=== PATIENT | male | born 1950 | race Caucasian/White ===

== ENCOUNTER 2018-09-29 10:24 | Day surgery (SDC) | payer OTHER ==
--- NOTE | 2018-09-29 08:03 | HP ---
DATE OF SURGERY: 09/29/2018 ADMISSION DIAGNOSIS: Gallbladder dyskinesia 70%. ANTICIPATED PROCEDURE: Cholecystectomy. HISTORY OF PRESENT ILLNESS: A patient with upper abdominal pain nearly killing him. He had been severely bad here for about a week. Presents with HIDA scan. Seen and examined in the office. Desires to have immediate surgical intervention. He is being scheduled urgently. PAST MEDICAL HISTORY: ALLERGIES: PENICILLIN. MEDICATIONS: Nexium. PAST SURGICAL HISTORY: Knee replacement. Partial knee. Shoulder. Rotator cuff. Appendix. SOCIAL HISTORY: Negative. FAMILY HISTORY: Negative. PHYSICAL EXAMINATION: VITAL SIGNS: Normal. CHEST: Clear. COR: Regular. ABDOMEN: No palpable organomegaly or mass. IMPRESSION: Gallbladder dyskinesia. PLAN: Laparoscopic cholecystectomy.
[~2018-09-29 10:24] MED LIST: Lactated Ringers 1,000 ML IV ONE; Sensorcaine 0.25% 10 ML ONE
[2018-09-29] MEDS ORDERED: Ephedrine Sulfate 50 MG/ML IJ ONE (10:25)
[2018-09-29] MEDS ORDERED: SUBLIMAZE 250 MCG/5 ML IJ ONE (10:25)
[2018-09-29] MEDS ORDERED: Zemuron 100 MG/10 ML IJ ONE (10:25)
[2018-09-29] MEDS ORDERED: PHENYLEPHRINE HCL IJ ONE (10:25)
[2018-09-29] MEDS ORDERED: Decadron 4 MG INJ IV ONE (10:25)
[2018-09-29] MEDS ORDERED: BRIDION 200MG/2ML IV ONE (10:25)
[2018-09-29] MEDS ORDERED: DIPRIVAN 200 MG/20 ML IV ONE (10:25)
[2018-09-29] MEDS ORDERED: Zofran 4 MG/2 ML VIAL IV ONE (10:25)
[2018-09-29] MEDS ORDERED: Versed 2 MG/2 ML Injection IV ONE (10:25)
[2018-09-29] MEDS ORDERED: CLINDAMYCIN-D5W 900 MG/50 ML*** 900 MG/50 ML BAG IV SCH (10:30)
[2018-09-29] MEDS ORDERED: Lactated Ringers 1,000 ML IV SCH (10:30)
[2018-09-29] MEDS ORDERED: Levofloxacin 500MG/100ML D5W 500 MG/100 ML BAG IV SCH (10:30)
[2018-09-29] MEDS ORDERED: Levofloxacin 500MG/100ML D5W 500 MG/100 ML BAG IV ONE (10:31)
[2018-09-29] MEDS ORDERED: Zofran 4 MG/2 ML VIAL ONE (14:03)
[2018-09-29] MEDS ORDERED: TORAdol 30 mg Injection ONE (14:03)
[2018-09-29 15:13] VITALS: BP 120/71; PULSE 103; O2SAT 93
--- NOTE | 2018-09-30 07:35 | OP ---
SURGERY DATE/TIME: 09/29/2018 1252 PREOPERATIVE DIAGNOSIS: Gallbladder dyskinesia. POSTOPERATIVE DIAGNOSIS: Gallbladder dyskinesia. PROCEDURE: Laparoscopic cholecystectomy. SURGEON: Dr. Peterson. ANESTHESIA: General endotracheal tube. ESTIMATED BLOOD LOSS: None. COMPLICATIONS: None. CONDITION: Stable. INDICATIONS: A patient with upper abdominal pain, ultrasound negative, HIDA scan positive. Seen and examined. Procedure discussed in detail and wished to proceed. DESCRIPTION OF PROCEDURE AND FINDINGS: Taken to surgery. General anesthetic, routine prep and drape. Veress needle inserted. Opening pressure of 1, insufflating pressure 14. Four - 5's were placed. Good visualization. Cystic duct defined. Cystic artery defined. Both structures triply clipped and transected. Clips noted across and well approximated. Gallbladder rolled out of gallbladder fossa. The gallbladder delivered through upper left abdominal port. Hole closure device used 0 Vicryl. Field was dry. CO2 exsufflated. Skin closed with 4-0 Vicryl and Steri-Strips. The patient tolerated the procedure satisfactorily.
== END 2018-09-29 15:31 | disposition home or self-care (01) ==
LOC: SDC 10:24
PROVIDERS: ATTEND Surgery
DX: K82.8 Other specified diseases of gallbladder (principal)
CPT/HCPCS: J1100; J1885; J1956; J2250; J2370; J2405; J2704; J3010